=== PATIENT | female | born 1960 | race Caucasian/White ===

== ENCOUNTER 2017-10-13 10:30 | Emergency (ER) | payer OTHER ==
[~2017-10-13] VITALS: Ht 175.3 cm; Wt 60.8 kg
--- NOTE | 2017-10-13 10:57 | NUR ---
PT IS IN ROOM #1B. DR ROLON EVALUATED THE PT.
[2017-10-13 11:23] LABS: BASOPHILS # (AUTO) 0.1 K/uL (0.0-8.0); BASOPHILS % (AUTO) 0.5 % (0.0-2.0); EOSINOPHILS # (AUTO) 0.1 K/uL (0.0-0.7); EOSINOPHILS % (AUTO) 0.5 % (0.0-7.0); HEMATOCRIT 39.9 % (31.2-41.9); HEMOGLOBIN 13.4 g/dL (10.9-14.3); LYMPHOCYTES # (AUTO) 2.1 K/uL (20.0-40.0); LYMPHOCYTES % (AUTO) 17.4 % (20.5-51.5); MEAN CORPUSCULAR HEMOGLOBIN 30.2 uug (24.7-32.8); MEAN CORPUSCULAR HGB CONC 34 g/dL (32.3-35.6); MEAN CORPUSCULAR VOLUME 90.2 fL (75.5-95.3); MONOCYTES # (AUTO) 1.3 K/uL (2.0-10.0); MONOCYTES % (AUTO) 10.8 % (0.0-11.0); NEUTROPHILS # (AUTO) 8.5 K/uL (1.8-8.9); NEUTROPHILS % (AUTO) 70.8 % (38.5-71.5); PLATELET COUNT (AUTO) 154 K/uL (179-408); RED BLOOD CELL COUNT(AUTO) 4.42 MIL/uL (3.63-4.92)
[2017-10-13 11:31] LABS: CREATININE 0.6 mg/dL (0.6-1.3)
[2017-10-13 11:40] LABS: BILIRUBIN,DIRECT 0.1 mg/dL (0.0-0.2); BILIRUBIN,TOTAL 0.4 mg/dL (0.2-1.0); TOTAL PROTEIN, SERUM 6.9 g/dL (6.4-8.2)
[2017-10-13] MEDS ORDERED: predniSONE 50 MG TABLET PO ONE (11:45)
[2017-10-13] MEDS ORDERED: predniSONE 50 MG TABLET ONE (11:48)
--- NOTE | 2017-10-13 12:01 | NUR ---
PT WAS D/C TO HOME. D/C INSTRUCTIONS GIVEN TO THE PT.
[2017-10-13 12:03] VITALS: BP 126/88
== END 2017-10-13 12:04 | disposition home or self-care (01) ==
LOC: ER 10:30
DX: J32.9 Chronic sinusitis, unspecified (principal)
CPT/HCPCS: 36415; 70030-TC; 71045; 83605; 85025; 87040; 93005; A4663; J7512